=== PATIENT | male | born 1975 | race Caucasian/White ===

== ENCOUNTER 2017-04-26 17:35 | Emergency (ER) | payer MEDICAID ==
[~2017-04-26] VITALS: Ht 177.8 cm; Wt 72.7 kg
[~2017-04-26 17:35] MED LIST: IBUP-1573 PO
[2017-04-26] MEDS ORDERED: HYDROcodone/acetaminophen 10/325mg tab PO ONE (19:25)
[2017-04-26] MEDS ORDERED: amox tr/potassium clavulanate 875/125mg TAB PO ONE (21:25)
[2017-04-27 00:10] VITALS: BP 127/90
== END 2017-04-27 00:12 | disposition short-term general hospital (02) ==
LOC: ER 17:36
DX: S02.40EA Zygomatic fracture, right side, initial encounter for closed fracture (principal); S02.31XA Fracture of orbital floor, right side, initial encounter for closed fracture; S02.40CA Maxillary fracture, right side, initial encounter for closed fracture; S02.19XA Other fracture of base of skull, initial encounter for closed fracture; G89.29 Other chronic pain; F12.10 Cannabis abuse, uncomplicated; F17.200 Nicotine dependence, unspecified, uncomplicated; Z59.0 Homelessness; W01.198A Fall on same level from slipping, tripping and stumbling with subsequent striking against other object, initial encounter; Y93.89 Activity, other specified; Y92.89 Other specified places as the place of occurrence of the external cause; Y99.8 Other external cause status
CPT/HCPCS: 73100; 99284

== ENCOUNTER 2018-10-18 03:27 | Emergency (ER) | payer MEDICAID ==
[~2018-10-18] VITALS: Ht 177.8 cm; Wt 63.1 kg
[2018-10-18] MEDS ORDERED: LIDOcaine 1% w/epiNEPHrine 1:200,000 30ml vial IM ONE (04:15)
[2018-10-18] MEDS ORDERED: CEPH500C5 PO (04:51)
[2018-10-18] MEDS ORDERED: SULF1TAB49 PO (04:51)
[2018-10-18 05:00] VITALS: BP 108/51
== END 2018-10-18 05:04 | disposition home or self-care (01) ==
LOC: ER 03:27
DX: L02.412 Cutaneous abscess of left axilla (principal); G89.29 Other chronic pain; F17.210 Nicotine dependence, cigarettes, uncomplicated; F10.99 Alcohol use, unspecified with unspecified alcohol-induced disorder; Z59.0 Homelessness; Z79.899 Other long term (current) drug therapy; Y90.9 Presence of alcohol in blood, level not specified
CPT/HCPCS: 10060; 99283

== ENCOUNTER 2019-07-08 10:16 | Emergency (ER) | payer MEDICAID ==
[~2019-07-08] VITALS: Ht 177.8 cm; Wt 81.8 kg
[2019-07-08 10:19] VITALS: BP 143/89
[2019-07-08] MEDS ORDERED: SULF1TAB49 PO (11:47)
[2019-07-08] MEDS ORDERED: MUPI22OI30 TOP (11:47)
== END 2019-07-08 12:14 | disposition home or self-care (01) ==
LOC: ER 10:16
DX: J32.9 Chronic sinusitis, unspecified (principal); G89.29 Other chronic pain; Z72.89 Other problems related to lifestyle; Z59.0 Homelessness; Z79.899 Other long term (current) drug therapy
CPT/HCPCS: 99283

== ENCOUNTER 2024-05-20 08:40 | Emergency (ER) | payer MEDICAID ==
[~2024-05-20] VITALS: Ht 177.8 cm; Wt 86.8 kg
[2024-05-20 08:48] VITALS: BP 145/63; PULSE 77; RESP 16; TEMP 98; O2SAT 98
[2024-05-20] MEDS ORDERED: CEPH-585 PO (09:39)
[2024-05-20] MEDS ORDERED: NICO-687 TOP (09:39)
== END 2024-05-20 09:52 | disposition home or self-care (01) ==
LOC: ER 08:40
DX: L02.512 Cutaneous abscess of left hand (principal); I50.9 Heart failure, unspecified; G89.29 Other chronic pain; Z59.00 Homelessness unspecified; Z79.1 Long term (current) use of non-steroidal anti-inflammatories (NSAID); Z79.899 Other long term (current) drug therapy; Z72.89 Other problems related to lifestyle; Z98.890 Other specified postprocedural states; Z72.0 Tobacco use
CPT/HCPCS: 99283

== ENCOUNTER 2024-05-26 08:01 | Emergency (ER) | payer MEDICAID ==
[~2024-05-26] VITALS: Ht 175.3 cm; Wt 85.4 kg
[~2024-05-26 08:01] MED LIST changes: +CEPH-585 PO; +NICO-687 TOP
[2024-05-26 08:12] VITALS: RESP 18
[2024-05-26 08:57] VITALS: BP 124/86; PULSE 71; TEMP 97.8; O2SAT 98
[2024-05-26] MEDS: LIDOcaine 1% (10mg/ml)w/preservative inj. 20ml MDV SQ ONE (10:27)
== END 2024-05-26 11:05 | disposition home or self-care (01) ==
LOC: ER 08:01
DX: L02.512 Cutaneous abscess of left hand (principal); F17.290 Nicotine dependence, other tobacco product, uncomplicated; Z59.00 Homelessness unspecified; G89.29 Other chronic pain; Z72.89 Other problems related to lifestyle; Z98.890 Other specified postprocedural states
CPT/HCPCS: 26010; 73140; 99283; A6266; A6407; 10060; A6258; A6449